=== PATIENT | male | born 2000 | race Caucasian/White ===

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

== ENCOUNTER 2021-09-24 14:32 | Emergency (ER) | payer SELFPAY ==
--- NOTE | 2021-09-24 16:31 | ER ---
Nurse's Notes [facility] Name: Dimitri Johnson Age: 20 yrs Sex: Male : 2000 Arrival Date: 09/24/2021 Time: 14:35 Bed DIS2 Private MD: Diagnosis: Acute pharyngitis, unspecified Presentation: 09/24 15:07 Chief complaint: Patient states: sore throat that started 4 days ago and has ww progressively gotten worse. Having trouble swallowing or speaking. Coronavirus screen: Client denies travel out of the [place] in the last 14 days. Ebola Screen: Patient denies travel to an Ebola-affected area in the 21 days before illness onset. Initial Sepsis Screen: Does the patient meet any 2 criteria? No. Patient's initial sepsis screen is negative. Does the patient have a suspected source of infection? No. Patient's initial sepsis screen is negative. Risk Assessment: Do you want to hurt yourself or someone else? Patient reports no desire to harm self or others. Onset of symptoms is unknown. 15:07 Method Of Arrival: Ambulatory ww 15:07 Acuity: IBIS 4 ww Triage Assessment: 15:08 General: Appears in no apparent distress. Behavior is calm, cooperative. Pain: ww Complains of pain in uvula, left aspect of posterior pharynx and right aspect of posterior pharynx. Neuro: Level of Consciousness is awake, alert, obeys commands, Oriented to person, place, time, situation, Speech is normal. Respiratory: Airway is patent Respiratory effort is even, unlabored, Respiratory pattern is regular, symmetrical. Historical: - Allergies: 15:08 No Known Allergies; ww - Home Meds: 15:08 None [Active]; ww - PMHx: 15:08 None; ww - PSHx: 15:08 None; ww - Immunization history:: Adult Immunizations not up to date. - Social history:: Smoking status: Patient denies any tobacco usage or history of. Screenin:50 Abuse screen: Denies threats or abuse. Denies injuries from another. Nutritional ww screening: No deficits noted. Tuberculosis screening: No symptoms or risk factors identified. Fall Risk None identified. Assessment: 16:50 Reassessment: see triage assessment. ww Vital Signs: 15:07 BP 107 / 58; Pulse 89; Resp 18; Temp 98.2; Pulse Ox 99% ; Height 6 ft. 0 in. (182.88 ww cm); 16:50 BP 109 / 62; Pulse 86; Resp 18; Pulse Ox 99% on R/A; ww ED Course: 14:35 Patient arrived in ED. am2 15:08 Triage completed. ww 15:08 Arm band placed on. ww 15:11 Strep swab sent to lab. ww 15:41 Anant Hendrix PA is PHCP. [facility] 15:41 Moe Bello MD is Attending Physician. [facility] 15:48 Reema Mckay, RN is Primary Nurse. iw 16:50 Patient has correct armband on for positive identification. Placed in gown. Bed in low ww position. Call light in reach. Side rails up X2. underwriting consultant on. Pulse ox on. NIBP on. Door closed. Noise minimized. Warm blanket given. 16:50 No provider procedures requiring assistance completed. Patient did not have IV access ww during this emergency room visit. Administered Medications: 16:50 Drug: Decadron (dexamethasone) 10 mg Route: IM; Site: left deltoid; ww Medication: 16:50 VIS not applicable for this client. ww Outcome: 16:30 Discharge ordered by . [facility] 16:50 Discharged to home ambulatory. ww 16:50 Condition: stable 16:50 Discharge instructions given to patient, Instructed on discharge instructions, follow up and referral plans. medication usage, Demonstrated understanding of instructions, follow-up care, medications, Prescriptions given X 1. 16:51 Patient left the ED. ww Signatures: Anant Hendrix PA PA [facility] Reema Mckay, RN SANGEETHA Dorothy Godinez [facility] Sandy Perales RN RN
--- NOTE | 2021-09-24 16:31 | EDPHYS ---
Physician Documentation [facility] Name: Dimitri Johnson Age: 20 yrs Sex: Male : 2000 Arrival Date: 09/24/2021 Time: 14:35 Bed DIS2 Private MD: ED Physician Moe Bello HPI: 09/24 15:11 This 20 yrs old Male presents to ER via Ambulatory with complaints of Sore Throat. jmm 15:11 The patient presents with sore throat. Onset: The symptoms/episode began/occurred jmm gradually. Modifying factors: The symptoms are alleviated by nothing, the symptoms are aggravated by nothing. Associated signs and symptoms: Pertinent positives: Sore throat. It is unknown whether or not the patient has had similar symptoms in the past. Historical: - Allergies: 15:08 No Known Allergies; ww - Home Meds: 15:08 None [Active]; ww - PMHx: 15:08 None; ww - PSHx: 15:08 None; ww - Immunization history:: Adult Immunizations not up to date. - Social history:: Smoking status: Patient denies any tobacco usage or history of. ROS: 15:11 Constitutional: Negative for fever, chills, and weight loss, Cardiovascular: Negative jmm for chest pain, palpitations, and edema, Respiratory: Negative for shortness of breath, cough, wheezing, and pleuritic chest pain. 15:11 ENT: Positive for sore throat. 15:11 All other systems are negative. Exam: 15:11 Constitutional: This is a well developed, well nourished patient who is awake, alert, jmm and in no acute distress. Head/Face: atraumatic. Eyes: EOMI, no conjunctival erythema appreciated Neck: Trachea midline, Supple Chest/axilla: Normal chest wall appearance and motion. Cardiovascular: Regular rate and rhythm. No edema appreciated Respiratory: Normal respirations, no respiratory distress appreciated Abdomen/GI: Non distended, soft Back: Normal ROM Skin: General appearance color normal 15:11 MS/ Extremity: Moves all extremities, no obvious deformities appreciated, no edema noted to the lower extremities Neuro: Awake and alert Psych: Behavior is normal, Mood is normal, Patient is cooperative and pleasant 15:11 ENT: Posterior pharynx: Airway: normal, Uvula: midline, erythema, that is mild. Vital Signs: 15:07 BP 107 / 58; Pulse 89; Resp 18; Temp 98.2; Pulse Ox 99% ; Height 6 ft. 0 in. (182.88 ww cm); 16:50 BP 109 / 62; Pulse 86; Resp 18; Pulse Ox 99% on R/A; ww MDM: 15:48 Patient medically screened. [facility] 16:28 Data reviewed: vital signs, nurses notes. Counseling: I had a detailed discussion with eim the patient and/or guardian regarding: the historical points, exam findings, and any diagnostic results supporting the discharge/admit diagnosis, lab results, the need for outpatient follow up, to return to the emergency department if symptoms worsen or persist or if there are any questions or concerns that arise at home. 09/24 15:10 Order name: Strep; Complete Time: 15:47 09/24 15:47 Order name: Throat Culture EDMS Administered Medications: 16:50 Drug: Decadron (dexamethasone) 10 mg Route: IM; Site: left deltoid; Disposition Summary: 09/24/21 16:30 Discharge Ordered Location: Home [facility] Condition: Stable [facility] Diagnosis - Acute pharyngitis, unspecified [facility] Followup: [facility] - With: Private Physician - When: 2 - 3 days - Reason: Recheck today's complaints, Continuance of care, Re-evaluation by your physician Discharge Instructions: - Discharge Summary Sheet [facility] - Pharyngitis [facility] Forms: - Medication Reconciliation Form [facility] - Thank You Letter [facility] - Antibiotic Education [facility] - Prescription Opioid Use [facility] Prescriptions: - Amoxicillin 875 mg Oral Tablet - take 1 tablet by ORAL route every 12 hours for 10 days; 20 tablet; Refills: 0, [facility] Product Selection Permitted Signatures: Dispatcher [employer] Moe Burkett MD MD cha Mickail, Joel, PA PA Sandy Melgoza, RN RN ww
[2021-09-24] MEDS ORDERED: dexAMETHasone 10 MG/ML VIAL ONE (16:48)
[2021-09-24 17:38] VITALS: TEMP 98.2; O2SAT 99
[2021-09-24 17:39] VITALS: BP 109/62
== END 2021-09-24 16:51 | disposition home or self-care (01) ==
LOC: ER 14:32
DX: J02.9 Acute pharyngitis, unspecified (principal)
CPT/HCPCS: 87070; 87081; 96372; 99284; J1100